=== PATIENT | female | born 1985 | race Asian ===

== ENCOUNTER 2018-10-11 11:15 | Observation (INO) | payer MEDICAID ==
[~2018-10-11] VITALS: Ht 170.2 cm; Wt 73.9 kg
[2018-10-11 14:10] VITALS: BP_SYST 110
--- NOTE | 2018-10-11 16:44 | NUR ---
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 Rn. stated she entered info incorrectly and was in the middle of making a correction. Pt. was D/C.
== END 2018-10-11 14:00 | disposition home or self-care (01) ==
LOC: UNDOADMOB 11:15 → SPU 11:15
PROVIDERS: ADMIT Obstetrics & Gynecology; ATTEND Obstetrics & Gynecology
DX: O36.8130 Decreased fetal movements, third trimester, not applicable or unspecified (principal); Z3A.36 36 weeks gestation of pregnancy
CPT/HCPCS: 59025; 76819; 81002; G0378

== ENCOUNTER 2018-10-12 10:30 | Observation (INO) | payer MEDICAID | END 2018-10-12 12:05 | disposition home or self-care (01) | LOC: SPU 10:30 | PROVIDERS: ADMIT Obstetrics & Gynecology; ATTEND Obstetrics & Gynecology | DX: O36.8130 Decreased fetal movements, third trimester, not applicable or unspecified (principal); Z3A.36 36 weeks gestation of pregnancy | CPT/HCPCS: 59025; 76819; 81002; G0378 ==

== ENCOUNTER 2018-10-14 09:50 | Observation (INO) | payer MEDICAID ==
[~2018-10-14] VITALS: Ht 170.2 cm; Wt 75.7 kg
== END 2018-10-14 11:50 | disposition home or self-care (01) ==
LOC: SPU 09:50
PROVIDERS: ADMIT Obstetrics & Gynecology; ATTEND Obstetrics & Gynecology
DX: O41.03X0 Oligohydramnios, third trimester, not applicable or unspecified (principal); Z3A.36 36 weeks gestation of pregnancy
CPT/HCPCS: 59025; 76819; 81002; G0378

== ENCOUNTER 2018-10-18 10:28 | Observation (INO) | payer MEDICAID ==
[~2018-10-18] VITALS: Ht 170.2 cm; Wt 75.3 kg
== END 2018-10-18 12:10 | disposition home or self-care (01) ==
LOC: SPU 10:28
PROVIDERS: ADMIT Obstetrics & Gynecology; ATTEND Obstetrics & Gynecology
DX: O36.8130 Decreased fetal movements, third trimester, not applicable or unspecified (principal); Z3A.36 36 weeks gestation of pregnancy
CPT/HCPCS: 76819; 81002; G0378

== ENCOUNTER 2018-10-21 10:08 | Observation (INO) | payer MEDICAID ==
[~2018-10-21] VITALS: Ht 170.2 cm; Wt 77.1 kg
== END 2018-10-21 12:40 | disposition home or self-care (01) ==
LOC: SPU 10:08
PROVIDERS: ADMIT Obstetrics & Gynecology; ATTEND Obstetrics & Gynecology
DX: O41.03X1 Oligohydramnios, third trimester, fetus 1 (principal); Z3A.38 38 weeks gestation of pregnancy
CPT/HCPCS: 59025; 76819; 81002; G0378

== ENCOUNTER 2018-10-24 10:07 | Observation (INO) | payer MEDICAID ==
[~2018-10-24] VITALS: Ht 170.2 cm; Wt 74.8 kg
[2018-10-24 12:51] LABS: BILIRUBIN,URINE NEGATIVE (NEGATIVE); CLARITY/URINE CLEAR (CLEAR); COLOR,URINE YELLOW (YELLOW); GLUCOSE,URINE NEGATIVE (NEGATIVE); KETONES,URINE NEGATIVE (NEGATIVE); LEUKOCYTE ESTERASE ,URINE 3+ (NEGATIVE); NITRITE, URINE NEGATIVE (NEGATIVE); PROTEIN URINE NEGATIVE (NEGATIVE); UROBILINOGEN,URINE 0.2 (0.2-1.0)
[2018-10-24 12:54] LABS: BLOOD, URINE TRACE (NEGATIVE)
[2018-10-24 13:02] LABS: BACTERIA,URINE FEW /HPF (None Seen); MUCUS,URINE None Seen /LPF (None Seen); RBC,URINE 0-3 /HPF (0-3)
== END 2018-10-24 12:35 | disposition home or self-care (01) ==
LOC: SPU 10:07
PROVIDERS: ADMIT Obstetrics & Gynecology; ATTEND Obstetrics & Gynecology
DX: O26.833 Pregnancy related renal disease, third trimester (principal); N13.30 Unspecified hydronephrosis; Z3A.38 38 weeks gestation of pregnancy
CPT/HCPCS: 76819; 81000; 87086; G0378

== ENCOUNTER 2018-10-25 17:50 | Observation (INO) | payer MEDICAID | END 2018-10-25 18:35 | disposition home or self-care (01) | LOC: SPU 17:50 | PROVIDERS: ADMIT Obstetrics & Gynecology; ATTEND Obstetrics & Gynecology | DX: O42.92 Full-term premature rupture of membranes, unspecified as to length of time between rupture and onset of labor (principal); Z3A.38 38 weeks gestation of pregnancy | CPT/HCPCS: G0378 ==

== ENCOUNTER 2018-10-27 11:01 | Observation (INO) | payer MEDICAID ==
[~2018-10-27] VITALS: Ht 170.2 cm; Wt 77.1 kg
[2018-10-27 20:32] VITALS: BP_SYST 102
== END 2018-10-27 15:40 | disposition home or self-care (01) ==
LOC: SPU 11:01
PROVIDERS: ADMIT Obstetrics & Gynecology; ATTEND Obstetrics & Gynecology
DX: O41.03X0 Oligohydramnios, third trimester, not applicable or unspecified (principal); O32.1XX0 Maternal care for breech presentation, not applicable or unspecified; Z3A.38 38 weeks gestation of pregnancy
CPT/HCPCS: 76819; G0378

== ENCOUNTER 2018-10-30 10:07 | Observation (INO) | payer MEDICAID | END 2018-10-30 13:20 | disposition home or self-care (01) | LOC: SPU 10:07 | PROVIDERS: ADMIT Obstetrics & Gynecology; ATTEND Obstetrics & Gynecology | DX: O41.03X0 Oligohydramnios, third trimester, not applicable or unspecified (principal); O26.893 Other specified pregnancy related conditions, third trimester; R10.9 Unspecified abdominal pain; Z3A.39 39 weeks gestation of pregnancy | CPT/HCPCS: 76819; G0378; 59025 ==

== ENCOUNTER 2018-11-02 12:34 | Observation (INO) | payer MEDICAID ==
[~2018-11-02] VITALS: Ht 170.2 cm; Wt 77.1 kg
[2018-11-02] MEDS ORDERED: TERBUTALINE SULFATE 1 MG/ML VIAL SUBCUT PRN (13:00)
== END 2018-11-02 14:00 | disposition home or self-care (01) ==
LOC: SPU 12:34
PROVIDERS: ADMIT Obstetrics & Gynecology; ATTEND Obstetrics & Gynecology
DX: O41.03X0 Oligohydramnios, third trimester, not applicable or unspecified (principal); Z3A.39 39 weeks gestation of pregnancy
CPT/HCPCS: 76819; G0378; 59025